=== PATIENT | male | born 1980 | race Caucasian/White ===

== ENCOUNTER 2022-10-26 10:26 | Emergency (ER) | payer BC ==
[~2022-10-26] VITALS: Ht 182.9 cm; Wt 104.0 kg
[2022-10-26 10:59] LABS: CLARITY,URINE CLEAR (Clear); COLOR,URINE YELLOW (Yellow); GLUCOSE, URINE NEGATIVE (Neg); KETONES,URINE NEGATIVE (Neg); LEUKOCYTE ESTERASE ,URINE NEGATIVE (Neg); NITRITES, URINE NEGATIVE (Neg); OCCULT BLOOD,URINE TRACE-INTACT (Neg); PROTEIN,URINE NEGATIVE (Neg); UROBILINOGEN,URINE 0.2 E.U/dL (0.2-1.0)
[2022-10-26 11:03] LABS: UA COLLECTION TYPE CLN CATCH MIDSTREAM
[2022-10-26 11:04] LABS: AMORPHOUS PHOSPHATES 1+; BACTERIA,URINE NONE SEEN /HPF (Neg); MUCUS STRANDS FEW /LPF (Neg); SQUAMOUS EPITHELIAL CELL,UR FEW /LPF (FEW); WBC,URINE 0-4 /HPF (0-4)
[2022-10-26] MEDS ORDERED: ARIP15TA3 PO (11:05)
[2022-10-26 11:29] LABS: BASOPHILS # (AUTO) 0.1 X10'3 (0-0.2); BASOPHILS % (AUTO) 1.3 % (0-1); EOSINOPHILS # (AUTO) 0.3 X10'3 (0-0.9); EOSINOPHILS % (AUTO) 3.7 % (0-6); HEMATOCRIT 46.4 % (42.0-52.0); HEMOGLOBIN 15.9 g/dl (14.0-17.9); LYMPHOCYTES # (AUTO) 1.8 X10'3 (1.1-4.8); LYMPHOCYTES % (AUTO) 22.3 % (21-51); MEAN CORPUSCULAR HGB CONC 34.2 g/dL (33.0-36.5); MEAN CORPUSCULAR VOLUME 90.7 FL (78-98); MEAN PLATELET VOLUME 7.5 FL (7.4-10.4); MONOCYTES # (AUTO) 0.6 X10'3 (0-0.9); NEUTROPHILS # (AUTO) 5.2 X10'3 (1.8-7.7); NEUTROPHILS % (AUTO) 64.7 % (42-75); PLATELET COUNT 204 X10'3 (140-440); RED BLOOD COUNT 5.12 X10'6 (4.70-6.10); RED CELL DISTRIBUTION WIDTH 13.5 % (11.5-14.5)
[2022-10-26 11:32] LABS: ALANINE AMINOTRANSFERASE 24 U/L (12-78); ALBUMIN 3.7 G/DL (3.4-5.0); ALBUMIN/GLOBULIN RATIO 1.3 (1.1-1.5); ALKALINE PHOSPHATASE 98 IU/L (46-116); ANION GAP 7 (8-16); ASPARTATE AMINO TRANSFERASE 21 U/L (10-37); BILIRUBIN,TOTAL 0.3 MG/DL (0.1-1.0); BLOOD UREA NITROGEN 13 MG/DL (7-18); BUN/CREATININE RATIO 10.1 (5.4-32.0); CALCIUM 8.3 MG/DL (8.5-10.1); CHLORIDE 108 MMOL/L (99-107); CREATININE 1.29 MG/DL (0.60-1.10); GLUCOSE 98 MG/DL (70-104); LIPASE 83 U/L (73-393); POTASSIUM 4.3 MMOL/L (3.5-5.1); SODIUM 140 MMOL/L (135-145); TOTAL CARBON DIOXIDE 24.8 MMOL/L (24-32); TOTAL PROTEIN 6.6 G/DL (6.4-8.2); eGFR 62 ML/MIN
[2022-10-26] MEDS ORDERED: cloNIDine 0.1 mg tablet PO ONE (11:55)
[2022-10-26] MEDS ORDERED: ondansetron 4mg rapidly disintigrating tab PO ONE (11:55)
[2022-10-26] MEDS ORDERED: morphine 4 MG/ML inj SYRINge IM ONE (12:10)
[2022-10-26] MEDS ORDERED: diatr meglu/diatrizoate 30ml oral sol.-(3 dose) bottle ONE (14:13)
[2022-10-26 16:34] VITALS: BP 132/60
== END 2022-10-26 16:38 | disposition home or self-care (01) ==
LOC: ER 10:27
DX: K56.1 Intussusception (principal); R10.84 Generalized abdominal pain; R11.2 Nausea with vomiting, unspecified; I10 Essential (primary) hypertension; F20.9 Schizophrenia, unspecified; Z88.1 Allergy status to other antibiotic agents; Z88.8 Allergy status to other drugs, medicaments and biological substances; Z79.899 Other long term (current) drug therapy
CPT/HCPCS: 36415; 74176; 80053; 81001; 83690; 85025; 96372; 99285; J2270; Q9963

== ENCOUNTER 2023-07-24 14:19 | Emergency (ER) | payer BC ==
[~2023-07-24] VITALS: Ht 185.4 cm; Wt 115.5 kg
[~2023-07-24 14:19] MED LIST: ARIP15TA3 PO
[2023-07-24 14:55] VITALS: TEMP 99.5
--- NOTE | 2023-07-24 15:55 | NUR ---
PT PRESENTS TO THE ER FOR "PRESSURE BEHIND BOTH EYES" PT STATED THE PAIN IS WORSENED BY COUGHING. PT REPORTS HAVING DOUBLE VISION.
--- NOTE | 2023-07-24 16:10 | NUR ---
AWAITING JAMIA GUNN TO REVIEW PT ASSESSMENTS.
[2023-07-24] MEDS ORDERED: normal saline 1000ml 1,000 ML IV ONE ×2 (16:20→17:35)
[2023-07-24] MEDS ORDERED: proCHLORperazine 10 MG/2 ml inj IV ONE (16:20)
[2023-07-24] MEDS ORDERED: diphenhydrAMINE 50 mg/ml inj IV ONE (16:20)
[2023-07-24] MEDS ORDERED: ketorolac tromethamine 15mg/ml inj. IV ONE (16:40)
[2023-07-24] MEDS ORDERED: ketorolac trometh. 30mg/ml inj. IV ONE (16:40)
--- NOTE | 2023-07-24 16:52 | NUR ---
assessments reviewed by JAMIA
--- NOTE | 2023-07-24 16:55 | NUR ---
AIRWAY PATENT, RESPIRATIONS UNLABORED AND EVEN, RADIAL PULSE 107
[2023-07-24] MEDS ORDERED: dexamethasone sod phosphate 10mg/ml inj IV STA (17:35)
[2023-07-24] MEDS ORDERED: morphine 4 MG/ML inj SYRINge IV ONE (17:35)
--- NOTE | 2023-07-24 18:12 | NUR ---
[employer] CLERK BLOOD BANK GENERAL ASSESSMENT REVIEWED BY EMIR RN AND APPROVED
[2023-07-24 18:50] VITALS: BP 157/120; PULSE 106; RESP 18; O2SAT 97
== END 2023-07-24 18:52 | disposition home or self-care (01) ==
LOC: ER 14:19
DX: G43.909 Migraine, unspecified, not intractable, without status migrainosus (principal); H53.2 Diplopia
CPT/HCPCS: 70450; 96361; 96374; 96375; 99285; J0780; J1100; J1200; J1885; J2270; J7030

== ENCOUNTER 2023-07-27 13:21 | Emergency (ER) | payer BC ==
[~2023-07-27] VITALS: Ht 185.4 cm; Wt 115.5 kg
[2023-07-27 14:13] VITALS: TEMP 99.5
[2023-07-27] MEDS ORDERED: magnesium 2GM in 50ml NS 50 ML IV ONE (14:50)
[2023-07-27] MEDS ORDERED: normal saline 1000ml 1,000 ML IV SCH (14:50)
[2023-07-27] MEDS ORDERED: ketorolac trometh. 30mg/ml inj. IV ONE (14:55)
[2023-07-27] MEDS ORDERED: diphenhydrAMINE 50 mg/ml inj IV ONE (14:55)
[2023-07-27] MEDS ORDERED: metoclopramide 5 mg/ml inj IV ONE (14:55)
[2023-07-27 15:11] LABS: BASOPHILS # (AUTO) 0.1 X10'3 (0-0.2); BASOPHILS % (AUTO) 0.7 % (0-1); EOSINOPHILS # (AUTO) 0.2 X10'3 (0-0.9); EOSINOPHILS % (AUTO) 1.7 % (0-6); HEMATOCRIT 44.4 % (42.0-52.0); HEMOGLOBIN 15.1 g/dl (14.0-17.9); LYMPHOCYTES # (AUTO) 1.7 X10'3 (1.1-4.8); LYMPHOCYTES % (AUTO) 17.3 % (21-51); MEAN CORPUSCULAR HEMOGLOBIN 29.9 PG (27.0-31.0); MEAN CORPUSCULAR HGB CONC 34.1 g/dL (33.0-36.5); MEAN CORPUSCULAR VOLUME 87.5 FL (78-98); MEAN PLATELET VOLUME 8.7 FL (7.4-10.4); MONOCYTES # (AUTO) 0.9 X10'3 (0-0.9); MONOCYTES % (AUTO) 9.3 % (2-12); NEUTROPHILS # (AUTO) 7.1 X10'3 (1.8-7.7); PLATELET COUNT 124 X10'3 (140-440); RED BLOOD COUNT 5.07 X10'6 (4.70-6.10)
[2023-07-27 15:26] LABS: ALANINE AMINOTRANSFERASE 24 U/L (12-78); ALBUMIN 3.4 G/DL (3.4-5.0); ALKALINE PHOSPHATASE 86 IU/L (46-116); ANION GAP 8 (8-16); ASPARTATE AMINO TRANSFERASE 23 U/L (10-37); BILIRUBIN,TOTAL 0.6 MG/DL (0.1-1.0); BLOOD UREA NITROGEN 15 MG/DL (7-18); BUN/CREATININE RATIO 11.4 (10.0-20.0); CALCIUM 8.8 MG/DL (8.5-10.1); CHLORIDE 102 MMOL/L (99-107); CREATININE 1.32 MG/DL (0.60-1.10); GLUCOSE 106 MG/DL (70-104); POTASSIUM 3.4 MMOL/L (3.5-5.1); SODIUM 132 MMOL/L (135-145); TOTAL CARBON DIOXIDE 21.9 MMOL/L (24-32); TOTAL PROTEIN 6.7 G/DL (6.4-8.2); eCRCL 84 ML/MIN; eGFR 60 ML/MIN
[2023-07-27] MEDS ORDERED: hydrALAZINE 20mg/ml inj. IV ONE ×2 (17:50→19:55)
--- NOTE | 2023-07-27 17:51 | NUR ---
BP still high and patient still complaining of headache 06/29 even after the Toradol was given for pain. BP 185/130 - Dr. Hope notified about this
[2023-07-27] MEDS ORDERED: HYDROmorphone 1 mg/ml syringe IV ONE (18:30)
[2023-07-27 18:54] LABS: BILIRUBIN,URINE NEGATIVE (Neg); CLARITY,URINE CLEAR (Clear); COLOR,URINE STRAW (Yellow); GLUCOSE, URINE NEGATIVE (Neg); KETONES,URINE NEGATIVE (Neg); LEUKOCYTE ESTERASE ,URINE NEGATIVE (Neg); NITRITES, URINE NEGATIVE (Neg); OCCULT BLOOD,URINE LARGE (Neg); PH,URINE 6.5 (4.8-8.0); PROTEIN,URINE NEGATIVE (Neg); UROBILINOGEN,URINE 0.2 E.U/dL (0.2-1.0)
[2023-07-27 19:10] LABS: URINE AMPHETAMINE SCREEN POSITIVE (Neg); URINE BARBITUATE SCREEN NEGATIVE (Neg); URINE BENZODIAZEPINES SCREEN NEGATIVE (Neg); URINE CANNABINOID SCREEN NEGATIVE (Neg); URINE COCAINE SCREEN NEGATIVE (Neg); URINE METHADONE SCREEN NEGATIVE (Neg); URINE OPIATE SCREEN NEGATIVE (Neg); URINE PHENCYCLIDINE SCREEN NEGATIVE (Neg)
[2023-07-27 19:13] LABS: UA COLLECTION TYPE CLN CATCH MIDSTREAM
[2023-07-27 19:14] LABS: SQUAMOUS EPITHELIAL CELL,UR FEW /LPF (FEW)
[2023-07-27 19:15] LABS: BACTERIA,URINE FEW /HPF (Neg); RBC,URINE 20-50 /HPF (0-2); WBC,URINE NONE SEEN /HPF (0-4)
[2023-07-27] MEDS ORDERED: LORazepam 2 mg/ml vial IV ONE (19:55)
[2023-07-27 21:15] VITALS: BP 163/113; PULSE 95; RESP 18; O2SAT 97
--- NOTE | 2023-07-27 23:38 | NUR ---
iv dc'd pt being discharged dressing applied
== END 2023-07-27 23:40 | disposition home or self-care (01) ==
LOC: ER 13:21
DX: F15.10 Other stimulant abuse, uncomplicated (principal); I10 Essential (primary) hypertension; G43.909 Migraine, unspecified, not intractable, without status migrainosus; Z88.1 Allergy status to other antibiotic agents; Z88.8 Allergy status to other drugs, medicaments and biological substances; Z91.041 Radiographic dye allergy status; Z88.0 Allergy status to penicillin; Z91.013 Allergy to seafood; Z79.899 Other long term (current) drug therapy
CPT/HCPCS: 36415; 70540; 80053; 80305; 81001; 85025; 96365; 96366; 96375; 99285; J0360; J1170; J1200; J1885; J2060; J2765; J3475; J7030

== ENCOUNTER 2023-11-06 16:55 | Emergency (ER) | payer BC ==
[~2023-11-06] VITALS: Ht 185.4 cm; Wt 124.4 kg
[2023-11-06 16:58] VITALS: BP 218/154; PULSE 100; RESP 20; TEMP 98.1; O2SAT 97
== END 2023-11-06 22:44 | disposition left against medical advice (07) ==
LOC: ER 16:56
DX: J02.9 Acute pharyngitis, unspecified (principal); Z53.21 Procedure and treatment not carried out due to patient leaving prior to being seen by health care provider
CPT/HCPCS: 71045; 99281

== ENCOUNTER 2024-08-11 10:27 | Emergency (ER) | payer BC ==
[~2024-08-11] VITALS: Ht 182.9 cm; Wt 128.7 kg
[2024-08-11 11:10] LABS: BASOPHILS # (AUTO) 0.1 X10'3 (0-0.2); BASOPHILS % (AUTO) 1.3 % (0-1); EOSINOPHILS # (AUTO) 0.2 X10'3 (0-0.9); EOSINOPHILS % (AUTO) 2.6 % (0-6); HEMATOCRIT 49.2 % (42.0-52.0); HEMOGLOBIN 16.8 g/dl (14.0-17.9); LYMPHOCYTES # (AUTO) 1.3 X10'3 (1.1-4.8); LYMPHOCYTES % (AUTO) 22.2 % (21-51); MEAN CORPUSCULAR HEMOGLOBIN 31.8 PG (27.0-31.0); MEAN CORPUSCULAR HGB CONC 34.1 g/dL (33.0-36.5); MEAN CORPUSCULAR VOLUME 93.4 FL (78-98); MEAN PLATELET VOLUME 8.7 FL (7.4-10.4); MONOCYTES # (AUTO) 0.6 X10'3 (0-0.9); MONOCYTES % (AUTO) 10.2 % (2-12); NEUTROPHILS # (AUTO) 3.8 X10'3 (1.8-7.7); NEUTROPHILS % (AUTO) 63.7 % (42-75); PLATELET COUNT 193 X10'3 (140-440); RED BLOOD COUNT 5.27 X10'6 (4.70-6.10); RED CELL DISTRIBUTION WIDTH 14.3 % (11.5-14.5)
[2024-08-11 11:37] LABS: ALANINE AMINOTRANSFERASE 33 U/L (12-78); ALBUMIN/GLOBULIN RATIO 1.1 (1.1-1.5); ALKALINE PHOSPHATASE 78 IU/L (46-116); AMYLASE 58 U/L (25-115); ANION GAP 9 (8-16); ASPARTATE AMINO TRANSFERASE 38 U/L (10-37); BILIRUBIN,TOTAL 0.6 MG/DL (0.1-1.0); BLOOD UREA NITROGEN 14 MG/DL (7-18); BUN/CREATININE RATIO 9.3 (10.0-20.0); CALCIUM 8.8 MG/DL (8.5-10.1); CHLORIDE 103 MMOL/L (99-107); GLUCOSE 101 MG/DL (70-104); LIPASE 25 U/L (16-77); POTASSIUM 3.2 MMOL/L (3.5-5.1); SODIUM 136 MMOL/L (135-145); TOTAL CARBON DIOXIDE 24.5 MMOL/L (24-32); TOTAL PROTEIN 7.7 G/DL (6.4-8.2); eCRCL 71 ML/MIN; eGFR 52 ML/MIN
[2024-08-11 11:43] LABS: BILIRUBIN,URINE NEGATIVE (Neg); CLARITY,URINE SLIGHTLY CLOUDY (Clear); COLOR,URINE YELLOW (Yellow); GLUCOSE, URINE NEGATIVE (Neg); KETONES,URINE NEGATIVE (Neg); LEUKOCYTE ESTERASE ,URINE NEGATIVE (Neg); NITRITES, URINE NEGATIVE (Neg); OCCULT BLOOD,URINE NEGATIVE (Neg); PH,URINE 5.5 (4.8-8.0); PROTEIN,URINE 30 mg/dl (Neg); UROBILINOGEN,URINE 0.2 E.U/dL (0.2-1.0)
[2024-08-11 11:52] LABS: FINE GRANULAR CAST 0-3 /LPF (NEGATIVE); HYALINE CASTS 0-3 /LPF (NEGATIVE); MUCUS STRANDS FEW /LPF (Neg); SQUAMOUS EPITHELIAL CELL,UR FEW /LPF (FEW); UA COLLECTION TYPE CLN CATCH MIDSTREAM
[2024-08-11 11:53] LABS: BACTERIA,URINE FEW /HPF (Neg); RBC,URINE 0-2 /HPF (0-2); WBC,URINE 0-4 /HPF (0-4)
[2024-08-11 12:45] LABS: PRO BRAIN NATRIURETIC PEPTIDE 834 PG/ML (0-125)
[2024-08-11] MEDS ORDERED: FURO40TA4 PO (13:14)
[2024-08-11] MEDS ORDERED: POTA-207 PO (13:14)
[2024-08-11] MEDS: furosemide 20MG tablet PO ONE (13:15)
[2024-08-11] MEDS: potassium Cl 20 mEq SR tablet PO STA (13:15)
[2024-08-11 13:34] LABS: D-DIMER 0.25 MG/L FEU (0-0.50)
[2024-08-11 14:20] VITALS: BP 138/92; PULSE 78; RESP 16; TEMP 97.8; O2SAT 98
[2024-08-12] MEDS ORDERED: CHLO25TA10 PO (04:25)
[2024-08-12] MEDS ORDERED: HYDR-3973 PO (04:25)
[2024-08-12] MEDS ORDERED: AMLO10TA13 PO (04:25)
[2024-08-12] MEDS ORDERED: PREG50CA65 (04:25)
[2024-08-12] MEDS ORDERED: OLME40TA18 PO (04:25)
== END 2024-08-11 14:22 | disposition home or self-care (01) ==
LOC: ER 10:27
DX: R06.00 Dyspnea, unspecified (principal); R79.89 Other specified abnormal findings of blood chemistry; G89.29 Other chronic pain; M54.9 Dorsalgia, unspecified; F20.9 Schizophrenia, unspecified; I10 Essential (primary) hypertension; G43.909 Migraine, unspecified, not intractable, without status migrainosus; Z91.041 Radiographic dye allergy status; Z88.8 Allergy status to other drugs, medicaments and biological substances; Z88.1 Allergy status to other antibiotic agents; Z79.899 Other long term (current) drug therapy
CPT/HCPCS: 36415; 71045; 80053; 81001; 82150; 83690; 83880; 84484; 85025; 85379; 93005; 99285

== ENCOUNTER 2024-08-11 21:52 | Inpatient (IN) | payer BC ==
[~2024-08-11] VITALS: Ht 182.9 cm; Wt 125.9 kg
[~2024-08-11 21:52] MED LIST changes: +FURO40TA4 PO; +POTA-207 PO
[2024-08-11 22:34] LABS: ALANINE AMINOTRANSFERASE 35 U/L (12-78); ALBUMIN 3.8 G/DL (3.4-5.0); ALBUMIN/GLOBULIN RATIO 1.1 (1.1-1.5); ALKALINE PHOSPHATASE 86 IU/L (46-116); ANION GAP 8 (8-16); ASPARTATE AMINO TRANSFERASE 44 U/L (10-37); BILIRUBIN,TOTAL 0.6 MG/DL (0.1-1.0); BLOOD UREA NITROGEN 20 MG/DL (7-18); BUN/CREATININE RATIO 11.4 (10.0-20.0); CALCIUM 8.8 MG/DL (8.5-10.1); CHLORIDE 104 MMOL/L (99-107); CREATININE 1.76 MG/DL (0.60-1.10); GLUCOSE 97 MG/DL (70-104); POTASSIUM 3.4 MMOL/L (3.5-5.1); SODIUM 138 MMOL/L (135-145); TOTAL CARBON DIOXIDE 26.4 MMOL/L (24-32); TOTAL PROTEIN 7.4 G/DL (6.4-8.2); eCRCL 61 ML/MIN; eGFR 43 ML/MIN
[2024-08-11 22:37] LABS: BASOPHILS # (AUTO) 0.1 X10'3 (0-0.2); BASOPHILS % (AUTO) 0.9 % (0-1); EOSINOPHILS # (AUTO) 0.2 X10'3 (0-0.9); EOSINOPHILS % (AUTO) 2.6 % (0-6); HEMATOCRIT 48.6 % (42.0-52.0); HEMOGLOBIN 16.7 g/dl (14.0-17.9); LYMPHOCYTES # (AUTO) 2.8 X10'3 (1.1-4.8); LYMPHOCYTES % (AUTO) 33.1 % (21-51); MEAN CORPUSCULAR HEMOGLOBIN 31.9 PG (27.0-31.0); MEAN CORPUSCULAR HGB CONC 34.4 g/dL (33.0-36.5); MEAN CORPUSCULAR VOLUME 92.9 FL (78-98); MEAN PLATELET VOLUME 8.9 FL (7.4-10.4); MONOCYTES # (AUTO) 1.2 X10'3 (0-0.9); MONOCYTES % (AUTO) 13.8 % (2-12); NEUTROPHILS # (AUTO) 4.1 X10'3 (1.8-7.7); NEUTROPHILS % (AUTO) 49.6 % (42-75); PLATELET COUNT 208 X10'3 (140-440); RED BLOOD COUNT 5.23 X10'6 (4.70-6.10); RED CELL DISTRIBUTION WIDTH 14.5 % (11.5-14.5); WHITE BLOOD COUNT 8.3 X10'3 (4.5-11.0)
[2024-08-11 22:44] LABS: PRO BRAIN NATRIURETIC PEPTIDE 933 PG/ML (0-125)
[2024-08-11 22:58] LABS: FREE T4 (FREE THYROXINE) < 0.20 NG/DL (0.73-1.40); THYROID STIMULATING HORMONE 2.97 ulU/ml (0.34-4.50)
[2024-08-12] VITALS (7 sets, daily range): BP systolic 114–134; BP diastolic 61–83; PULSE 72–88; RESP 16–20; TEMP 96.4–98.2; O2SAT 95–99
[2024-08-12 00:47] LABS: BILIRUBIN,URINE NEGATIVE (Neg); CLARITY,URINE CLEAR (Clear); COLOR,URINE YELLOW (Yellow); GLUCOSE, URINE NEGATIVE (Neg); KETONES,URINE NEGATIVE (Neg); LEUKOCYTE ESTERASE ,URINE NEGATIVE (Neg); NITRITES, URINE NEGATIVE (Neg); OCCULT BLOOD,URINE NEGATIVE (Neg); PROTEIN,URINE NEGATIVE (Neg); UROBILINOGEN,URINE 0.2 E.U/dL (0.2-1.0)
[2024-08-12 00:48] LABS: UA COLLECTION TYPE CLN CATCH MIDSTREAM
[2024-08-12] MEDS ORDERED: HYDROcodone/acetaminophen 5mg/325mg tablet PO PRN (02:05)
[2024-08-12] MEDS ORDERED: acetaminophen 325mg tablet PO PRN ×2 (02:05)
[2024-08-12] MEDS ORDERED: magnesium sulf-water 2g/50mL 50 ML IV PRN (02:05)
[2024-08-12] MEDS ORDERED: mag hydrox/Alum hydrox/simeth 30ml oral suspension PO PRN (02:05)
[2024-08-12] MEDS ORDERED: potassium Cl 20 mEq SR tablet PO PRN (02:05)
[2024-08-12] MEDS ORDERED: magnesium Cl slow-release 64mg tablet PO PRN (02:05)
[2024-08-12] MEDS ORDERED: potassium Cl 40MEQ/1/2NS 520ml 520 ML IV PRN (02:05)
[2024-08-12] MEDS ORDERED: ondansetron/PF 4mg/2ml inj IV PRN (02:05)
[2024-08-12] MEDS ORDERED: magnesium sulf-water 4G/100mL 100 ML IV PRN (02:05)
[2024-08-12] MEDS ORDERED: haloperidol 5mg tablet PO PRN (02:10)
[2024-08-12] MEDS ORDERED: LORazepam 2 mg/ml vial IV PRN (02:10)
[2024-08-12 02:15] LABS: ABG BASE EXCESS -0.9 mmol/L (-2.0-3.0); ABG HCO3 18.9 mmol/L (21.0-28.0); ABG OXYGEN SATURATION 96.6 % (94.0-98.0); ABG PCO2 (T) 22.2 mmHg (35.0-48.0); ABG PH (T) 7.549 (7.350-7.450); ABG PO2 (T) 80.4 mmHg (83.0-108.0); ALLEN'S TEST Modified; FHHb 3.4 % (0.0-5.0); FMetHb 0.1 % (0.0-1.5); FO2Hb 96.5 % (94.0-98.0); MODE RA; PATIENT TEMPERATURE 36.9; TOTAL HEMOGLOBIN 16.6 G/dl (13.5-17.5)
[2024-08-12] MEDS ORDERED: ipratropium/albuterol 3ml nebule NEB PRN (02:30)
[2024-08-12] MEDS ORDERED: albuterol 2.5 MG/3 ML nebule NEB PRN (02:30)
[2024-08-12 02:57] LABS: URINE AMPHETAMINE SCREEN NEGATIVE (Neg); URINE BARBITUATE SCREEN NEGATIVE (Neg); URINE BENZODIAZEPINES SCREEN NEGATIVE (Neg); URINE CANNABINOID SCREEN POSITIVE (Neg); URINE COCAINE SCREEN NEGATIVE (Neg); URINE METHADONE SCREEN NEGATIVE (Neg); URINE OPIATE SCREEN POSITIVE (Neg); URINE PHENCYCLIDINE SCREEN NEGATIVE (Neg)
[2024-08-12] MEDS ORDERED: AMLO10TA13 PO (04:25)
[2024-08-12] MEDS ORDERED: OLME40TA18 PO (04:25)
[2024-08-12] MEDS ORDERED: HYDR-3973 PO (04:25)
[2024-08-12] MEDS ORDERED: CHLO25TA10 PO (04:25)
[2024-08-12] MEDS ORDERED: PREG50CA65 (04:25)
[2024-08-12] MEDS: methylPREDNISolone sod succ/PF 40mg inj. IV SCH (05:01)
[2024-08-12] MEDS: heparin, porcine 5000 units/ml vial SQ SCH (07:32)
[2024-08-12] MEDS: potassium Cl 20 mEq SR tablet PO PRN (07:32)
[2024-08-12] MEDS: furosemide 10 MG/1 ML 10ml inj IV SCH (07:34)
[2024-08-12] MEDS: thiamine 100mg/ml 2ml inj. IV SCH (07:36)
[2024-08-12] MEDS: K and/or MAG REPLACEMENT MC SCH (07:38)
[2024-08-12] MEDS: nicotine 21mg patch - 24 hr TD SCH (07:38)
[2024-08-12] MEDS: folic acid 1mg/0.2ml inj IV SCH (07:50)
[2024-08-12 08:04] LABS: MAGNESIUM 2.4 MG/DL (1.5-2.4); POTASSIUM 3.8 MMOL/L (3.5-5.1)
[2024-08-12] MEDS: FLU VACC TS2024-25(6MOS UP)/PF 45 MCG/0.5 ML SYRINGE IMVAC ONE (12:26)
[2024-08-12 14:42] LABS: APTT 25 SECONDS (22-32); D-DIMER < 0.19 MG/L FEU (0-0.50); PROTHROMBIN TIME 10.9 SECONDS (9.0-12.0)
[2024-08-12] MEDS ORDERED: aminophylline 250mg/10ml inj. IV PRN (17:35)
[2024-08-12] MEDS ORDERED: metoprolol tartrate 1mg/ml inj IV PRN (17:35)
[2024-08-12] MEDS ORDERED: nitroGLYCERIN 0.4mg SUBLingual tab SL PRN (17:35)
[2024-08-12] MEDS: LORazepam 1 MG tablet PO ONE (18:07)
[2024-08-12] MEDS: furosemide 40mg/4ml inj IV SCH (22:56)
[2024-08-13] VITALS (11 sets, daily range): BP systolic 94–130; BP diastolic 53–77; PULSE 62–95; RESP 12–24; TEMP 97.2–97.9; O2SAT 94–99
[2024-08-13 08:01] LABS: ALBUMIN 3.8 G/DL (3.4-5.0); AMYLASE 53 U/L (25-115); ANION GAP 9 (8-16); BLOOD UREA NITROGEN 26 MG/DL (7-18); BUN/CREATININE RATIO 15.8 (10.0-20.0); CALCIUM 8.8 MG/DL (8.5-10.1); CHLORIDE 102 MMOL/L (99-107); CHOL/HDL RATIO 3.2 (0.00-4.99); CHOLESTEROL 199 MG/DL (0-200); CREATININE 1.65 MG/DL (0.60-1.10); GLUCOSE 154 MG/DL (70-104); HDL CHOLESTEROL 63 MG/DL (35-60); LDL CHOLESTEROL 119 MG/DL (50-100); LIPASE 18 U/L (16-77); PHOSPHORUS 3.7 MG/DL (2.3-4.5); SODIUM 135 MMOL/L (135-145); TOTAL CARBON DIOXIDE 23.8 MMOL/L (24-32); TRIGLYCERIDES 75 MG/DL (20-135); eCRCL 65 ML/MIN; eGFR 46 ML/MIN
[2024-08-13 08:03] LABS: POTASSIUM 3.9 MMOL/L (3.5-5.1)
[2024-08-13 09:55] LABS: BASOPHILS % (AUTO) 0.1 % (0-1); EOSINOPHILS % (AUTO) 0 % (0-6); HEMATOCRIT 48.2 % (42.0-52.0); HEMOGLOBIN 16.6 g/dl (14.0-17.9); LYMPHOCYTES # (AUTO) 1.1 X10'3 (1.1-4.8); LYMPHOCYTES % (AUTO) 6.1 % (21-51); MEAN CORPUSCULAR HEMOGLOBIN 32.2 PG (27.0-31.0); MEAN CORPUSCULAR HGB CONC 34.5 g/dL (33.0-36.5); MEAN CORPUSCULAR VOLUME 93.5 FL (78-98); MEAN PLATELET VOLUME 9.2 FL (7.4-10.4); MONOCYTES # (AUTO) 0.7 X10'3 (0-0.9); MONOCYTES % (AUTO) 3.7 % (2-12); NEUTROPHILS # (AUTO) 16.6 X10'3 (1.8-7.7); NEUTROPHILS % (AUTO) 90.1 % (42-75); PLATELET COUNT 224 X10'3 (140-440); RED BLOOD COUNT 5.16 X10'6 (4.70-6.10); RED CELL DISTRIBUTION WIDTH 14.5 % (11.5-14.5); WHITE BLOOD COUNT 18.5 X10'3 (4.5-11.0)
[2024-08-13 10:02] LABS: INR 1.1 INR
[2024-08-13] MEDS: regadenoson 0.4mg/5ml syringe IV PRN (10:43)
== END 2024-08-13 17:41 | disposition home or self-care (01) | DRG 291 ==
LOC: ER 21:53 → ED HOLD 08-12 01:52 → PCU 3S 08-12 16:02
PROVIDERS: ADMIT Surgery Surgical Critical Care; ATTEND Family Medicine
PROC: 5A09357 Assistance with Respiratory Ventilation, Less than 24 Consecutive Hours, Continuous Positive Airway Pressure (ICD-10-PCS; 2024-08-12)
PROC: 3E02340 Introduction of Influenza Vaccine into Muscle, Percutaneous Approach (ICD-10-PCS; 2024-08-12)
PROC: 4A02XM4 Measurement of Cardiac Total Activity, External Approach (ICD-10-PCS; principal; 2024-08-13)
PROC: 3E033HZ Introduction of Radioactive Substance into Peripheral Vein, Percutaneous Approach (ICD-10-PCS; 2024-08-13)
PROC: 5A09357 Assistance with Respiratory Ventilation, Less than 24 Consecutive Hours, Continuous Positive Airway Pressure (ICD-10-PCS; 2024-08-13)
DX: I11.0 Hypertensive heart disease with heart failure (principal); I50.33 Acute on chronic diastolic (congestive) heart failure; N17.9 Acute kidney failure, unspecified; J44.9 Chronic obstructive pulmonary disease, unspecified; F15.10 Other stimulant abuse, uncomplicated; G89.4 Chronic pain syndrome; I27.20 Pulmonary hypertension, unspecified; F17.210 Nicotine dependence, cigarettes, uncomplicated; Z85.831 Personal history of malignant neoplasm of soft tissue; Z88.1 Allergy status to other antibiotic agents; Z88.8 Allergy status to other drugs, medicaments and biological substances; Z91.041 Radiographic dye allergy status; Z88.0 Allergy status to penicillin; Z91.013 Allergy to seafood; Z90.49 Acquired absence of other specified parts of digestive tract; Z23 Encounter for immunization
CPT/HCPCS: 36415; 36600; 70450; 71045; 71250; 74176; 78452; 80048; 80053; 80061; 80305; 81003; 82150; 82803; 83036; 83605; 83690; 83735; 83880; 84100; 84132; 84439; 84443; 84480; 84484; 85018; 85025; 85379; 85610; 85730; 87040; 87340; 90686; 93017; 93306; 94760; 99285; A4615; A9500; G0378; J1644; J1940; J2785; J2919; J3411; J3490

== ENCOUNTER 2024-09-06 17:38 | Emergency (ER) | payer BC ==
[~2024-09-06] VITALS: Ht 182.9 cm; Wt 130.9 kg
[~2024-09-06 17:38] MED LIST changes: +AMLO10TA13 PO; +CHLO25TA10 PO; +HYDR-3973 PO; +OLME40TA18 PO; +PREG50CA65
[2024-09-06 18:20] VITALS: TEMP 97.4
[2024-09-06 18:45] LABS: BASOPHILS # (AUTO) 0.1 X10'3 (0-0.2); BASOPHILS % (AUTO) 0.6 % (0-1); EOSINOPHILS # (AUTO) 0.2 X10'3 (0-0.9); EOSINOPHILS % (AUTO) 2.2 % (0-6); HEMATOCRIT 47.1 % (42.0-52.0); HEMOGLOBIN 15.7 g/dl (14.0-17.9); LYMPHOCYTES # (AUTO) 2.3 X10'3 (1.1-4.8); MEAN CORPUSCULAR HEMOGLOBIN 31.2 PG (27.0-31.0); MEAN CORPUSCULAR HGB CONC 33.3 g/dL (33.0-36.5); MEAN CORPUSCULAR VOLUME 93.7 FL (78-98); MEAN PLATELET VOLUME 8.9 FL (7.4-10.4); MONOCYTES # (AUTO) 0.9 X10'3 (0-0.9); MONOCYTES % (AUTO) 8.2 % (2-12); NEUTROPHILS # (AUTO) 7.1 X10'3 (1.8-7.7); PLATELET COUNT 199 X10'3 (140-440); RED BLOOD COUNT 5.03 X10'6 (4.70-6.10); RED CELL DISTRIBUTION WIDTH 13.4 % (11.5-14.5); WHITE BLOOD COUNT 10.6 X10'3 (4.5-11.0)
[2024-09-06 18:54] LABS: ALANINE AMINOTRANSFERASE 45 U/L (12-78); ALBUMIN/GLOBULIN RATIO 1.2 (1.1-1.5); ALKALINE PHOSPHATASE 94 IU/L (46-116); ANION GAP 7 (8-16); ASPARTATE AMINO TRANSFERASE 35 U/L (10-37); BILIRUBIN,TOTAL 0.3 MG/DL (0.1-1.0); BLOOD UREA NITROGEN 33 MG/DL (7-18); BUN/CREATININE RATIO 18.9 (10.0-20.0); CALCIUM 8.6 MG/DL (8.5-10.1); CHLORIDE 103 MMOL/L (99-107); CREATININE 1.75 MG/DL (0.60-1.10); GLUCOSE 108 MG/DL (70-104); POTASSIUM 3.5 MMOL/L (3.5-5.1); SODIUM 140 MMOL/L (135-145); TOTAL CARBON DIOXIDE 29.8 MMOL/L (24-32); TOTAL PROTEIN 7.4 G/DL (6.4-8.2); eCRCL 61 ML/MIN; eGFR 43 ML/MIN
[2024-09-06 19:02] LABS: PRO BRAIN NATRIURETIC PEPTIDE 640 PG/ML (0-125)
[2024-09-06 20:46] LABS: LIPASE 45 U/L (16-77)
[2024-09-06] MEDS: LIDOcaine 2% Viscous 15ml cup MM ONE (23:06)
[2024-09-06] MEDS: mag hydrox/Alum hydrox/simeth 30ml oral suspension PO ONE (23:06)
[2024-09-06 23:40] VITALS: BP 145/85; PULSE 96; RESP 18; O2SAT 97
== END 2024-09-06 23:42 | disposition home or self-care (01) ==
LOC: ER 17:38
DX: R10.13 Epigastric pain (principal); R07.2 Precordial pain; I11.0 Hypertensive heart disease with heart failure; I50.9 Heart failure, unspecified; F20.9 Schizophrenia, unspecified; G43.909 Migraine, unspecified, not intractable, without status migrainosus; Z91.041 Radiographic dye allergy status; Z88.1 Allergy status to other antibiotic agents; Z88.8 Allergy status to other drugs, medicaments and biological substances; Z79.899 Other long term (current) drug therapy
CPT/HCPCS: 36415; 71045; 74176; 80053; 83690; 83880; 84484; 85025; 93005; 99285

== ENCOUNTER 2024-09-08 06:16 | Emergency (ER) | payer BC ==
[~2024-09-08] VITALS: Ht 182.9 cm; Wt 131.2 kg
[2024-09-08 06:18] VITALS: TEMP 99
[2024-09-08 07:18] LABS: BASOPHILS # (AUTO) 0.1 X10'3 (0-0.2); BASOPHILS % (AUTO) 0.7 % (0-1); EOSINOPHILS # (AUTO) 0.3 X10'3 (0-0.9); EOSINOPHILS % (AUTO) 3.9 % (0-6); HEMATOCRIT 46.2 % (42.0-52.0); HEMOGLOBIN 16.1 g/dl (14.0-17.9); LYMPHOCYTES # (AUTO) 1.5 X10'3 (1.1-4.8); LYMPHOCYTES % (AUTO) 17.8 % (21-51); MEAN CORPUSCULAR HGB CONC 34.9 g/dL (33.0-36.5); MEAN CORPUSCULAR VOLUME 91.6 FL (78-98); MEAN PLATELET VOLUME 8.4 FL (7.4-10.4); MONOCYTES # (AUTO) 0.9 X10'3 (0-0.9); MONOCYTES % (AUTO) 10.4 % (2-12); NEUTROPHILS # (AUTO) 5.5 X10'3 (1.8-7.7); NEUTROPHILS % (AUTO) 67.2 % (42-75); PLATELET COUNT 197 X10'3 (140-440); RED BLOOD COUNT 5.04 X10'6 (4.70-6.10); RED CELL DISTRIBUTION WIDTH 13.3 % (11.5-14.5); WHITE BLOOD COUNT 8.2 X10'3 (4.5-11.0)
[2024-09-08 07:54] LABS: ALANINE AMINOTRANSFERASE 53 U/L (12-78); ALBUMIN 3.9 G/DL (3.4-5.0); ALBUMIN/GLOBULIN RATIO 1.1 (1.1-1.5); ALKALINE PHOSPHATASE 67 IU/L (46-116); ANION GAP 9 (8-16); ASPARTATE AMINO TRANSFERASE 40 U/L (10-37); BILIRUBIN,TOTAL 0.7 MG/DL (0.1-1.0); BLOOD UREA NITROGEN 23 MG/DL (7-18); CALCIUM 8.7 MG/DL (8.5-10.1); CHLORIDE 101 MMOL/L (99-107); CREATININE 1.64 MG/DL (0.60-1.10); GLUCOSE 107 MG/DL (70-104); POTASSIUM 3.3 MMOL/L (3.5-5.1); SODIUM 136 MMOL/L (135-145); TOTAL CARBON DIOXIDE 25.6 MMOL/L (24-32); TOTAL PROTEIN 7.4 G/DL (6.4-8.2); eCRCL 64 ML/MIN; eGFR 46 ML/MIN
[2024-09-08 08:03] LABS: ETHANOL < 10 MG/DL (<10); LIPASE 26 U/L (16-77); MAGNESIUM 2.3 MG/DL (1.5-2.4); PRO BRAIN NATRIURETIC PEPTIDE 428 PG/ML (0-125)
[2024-09-08 08:22] LABS: D-DIMER < 0.19 MG/L FEU (0-0.50)
[2024-09-08 09:04] LABS: BILIRUBIN,URINE NEGATIVE (Neg); CLARITY,URINE CLEAR (Clear); COLOR,URINE YELLOW (Yellow); GLUCOSE, URINE >=1000 mg/dl (Neg); KETONES,URINE NEGATIVE (Neg); LEUKOCYTE ESTERASE ,URINE NEGATIVE (Neg); NITRITES, URINE NEGATIVE (Neg); OCCULT BLOOD,URINE NEGATIVE (Neg); PROTEIN,URINE NEGATIVE (Neg); UROBILINOGEN,URINE 0.2 E.U/dL (0.2-1.0)
[2024-09-08 09:09] LABS: UA COLLECTION TYPE CLN CATCH MIDSTREAM
[2024-09-08 09:13] LABS: URINE AMPHETAMINE SCREEN NEGATIVE (Neg); URINE BARBITUATE SCREEN NEGATIVE (Neg); URINE BENZODIAZEPINES SCREEN NEGATIVE (Neg); URINE CANNABINOID SCREEN NEGATIVE (Neg); URINE COCAINE SCREEN NEGATIVE (Neg); URINE METHADONE SCREEN NEGATIVE (Neg); URINE OPIATE SCREEN NEGATIVE (Neg); URINE PHENCYCLIDINE SCREEN NEGATIVE (Neg)
[2024-09-08 09:15] LABS: BACTERIA,URINE NONE SEEN /HPF (Neg); MUCUS STRANDS NONE SEEN /LPF (Neg); RBC,URINE 0-2 /HPF (0-2); SQUAMOUS EPITHELIAL CELL,UR NONE SEEN /LPF (FEW); WBC,URINE NONE SEEN /HPF (0-4)
[2024-09-08 09:16] LABS: AMORPHOUS PHOSPHATES 1+
[2024-09-08 10:08] VITALS: BP 134/84; PULSE 89; RESP 18; O2SAT 94
== END 2024-09-08 10:21 | disposition home or self-care (01) ==
LOC: ER 06:17
DX: I11.0 Hypertensive heart disease with heart failure (principal); I50.9 Heart failure, unspecified; I27.20 Pulmonary hypertension, unspecified; F20.9 Schizophrenia, unspecified; Z88.0 Allergy status to penicillin; Z91.041 Radiographic dye allergy status; Z88.5 Allergy status to narcotic agent; Z79.899 Other long term (current) drug therapy; Z88.8 Allergy status to other drugs, medicaments and biological substances
CPT/HCPCS: 36415; 71045; 80053; 80305; 80320; 81001; 83690; 83735; 83880; 84145; 84443; 84484; 85025; 85379; 87502; 87503; 93005; 99285